=== PATIENT | female | born 1975 | race Caucasian/White ===

== ENCOUNTER 2016-06-30 06:50 | Day surgery (SDC) | payer BC ==
[~2016-06-30] VITALS: Ht 160 cm; Wt 70.0 kg
[~2016-06-30 06:50] MED LIST: DAILY MULTIPLE1 EACH PO; HYDROXYCUT PO; IRON325 M1 PO; LOESTRIN1 EACH PO
[2016-06-30 07:07] VITALS: BP 119/77
[2016-06-30 11:27] VITALS: BP 125/81
[2016-06-30 12:33] VITALS: BP 112/64
[2016-06-30 14:49] VITALS: BP 123/71
== END 2016-06-30 15:00 | disposition home or self-care (01) ==
LOC: SDC 06:50
DX: N92.0 Excessive and frequent menstruation with regular cycle (principal); Z82.49 Family history of ischemic heart disease and other diseases of the circulatory system; Z83.79 Family history of other diseases of the digestive system
CPT/HCPCS: 88305; J0131; J1100; J1170; J1885; J2250; J2405; J3010